=== PATIENT | male | born 1960 | race Hispanic/Latino ===

== ENCOUNTER 2016-09-02 11:57 | Emergency (ER) | payer OTHER ==
[2016-09-02 12:12] VITALS: BP 133/87; PULSE 91; RESP 18; TEMP 98.3; O2SAT 97
--- NOTE | 2016-09-02 12:52 | ED PDOC ---
HPI: General Adult Time Seen by Provider: 09/02/16 12:16 Chief Complaint (Nursing): Needle Stick Chief Complaint (Provider): "States syringe broke off into stomach" History Per: Patient History/Exam Limitations: no limitations Have you had recent travel within the past 21 days to any of the following countries: [place], [place], [place] or [place]?: No Additional Complaint(s): Kamran Segura, a 56 year old male, presents to the the ED stating that a needle broke off into his abdomen. The patient states he was giving himself an injection, and after the syringe locked the needle was not in the syringe. He said he has been using the same needle for the past 2 years and never had such problem. Denies other medical problems. Past Medical History Reviewed: Historical Data, Nursing Documentation, Vital Signs Vital Signs: Last Vital Signs Temp 98.3 F 09/02/16 12:09 Pulse 91 H 09/02/16 12:09 Resp 18 09/02/16 12:09 BP 133/87 09/02/16 12:09 Pulse Ox 97 09/02/16 13:18 - Medical History PMH: Emphysema, GERD Denies: Chronic Kidney Disease - Family History Family History: States: Unknown Family Hx - Living Arrangements Living Arrangements: With Family - Home Medications Home Medications: Ambulatory Orders Medication Instructions Recorded Esomeprazole Magnesium [Nexium] 40 mg PO DAILY 05/28/15 - Allergies Allergies/Adverse Reactions: Allergies Allergy/AdvReac Type Severity Reaction Status Date / Time No Known Allergies Allergy Verified 09/02/16 12:09 Review of Systems Gastrointestinal: Negative for: Nausea, Vomiting, Abdominal Pain Physical Exam - Reviewed Nursing Documentation Reviewed: Yes Vital Signs Reviewed: Yes - Physical Exam Appears: Positive for: Non-toxic, No Acute Distress Head Exam: Positive for: ATRAUMATIC, NORMOCEPHALIC Gastrointestinal/Abdominal: Positive for: Normal Exam Neurologic/Psych: Positive for: Alert, Oriented, Gait - ECG O2 Sat by Pulse Oximetry: 97 (RA) Pulse Ox Interpretation: Normal Medical Decision Making Medical Decision Makin Initial Impression: 56 year old male presenting with needle accident 1230 While in the ED the patient found the needle in the syringe after discovering it was retractable. Plan for CT abdomen have been cancelled Scribe Attestation Documented by Susan Bangura acting as a scribe for Samantha Pina MD. Provider Attestation: All medical record entries made by the Scribe were at my direction and personally dictated by me. I have reviewed the chart and agree that the record accurately reflects my personal performance of the history, physical exam, medical decision making, and the department course for this patient. I have also personally directed, reviewed, and agree with the discharge instructions and disposition. Disposition - Clinical Impression Clinical Impression: Injection site irritation - Patient ED Disposition Is Patient to be Admitted: No Doctor Will See Patient In The: Office Counseled Patient/Family Regarding: Diagnosis, Need For Followup - Disposition Disposition: Routine/Home Disposition Time: 18:30 Condition: STABLE Instructions: Acute Wound Care (ED) - POA Present On Arrival: None
== END 2016-09-02 12:56 | disposition home or self-care (01) ==
LOC: H.ER 11:57
DX: J43.9 Emphysema, unspecified (principal)